=== PATIENT | male | born 1955 | race Caucasian/White ===

== ENCOUNTER → 2016-04-25 | Day surgery (SDC) | payer BC, OTHER ==
[~2016-04-25] VITALS: Ht 172.7 cm; Wt 112.0 kg
[~2016-04-25] MED LIST: AMBI10TA; ATOR1TAB19 PO; BACL10TA2 PO; BUPIVACAINE HCL 0.5% 10 ML VIAL As Ordered ONE; BUPIVACAINE HCL 0.5% 30 ML VIAL XX ONE; CYCL5TA PO; DARV100T; DRIS50002 PO; FLUO10CA8 PO; GABA-283 PO; HYDR-3713 PO; LIDOCAINE 1% SDV INJ 30 ML VIAL As Ordered ONE; LIDOCAINE 1% SDV INJ 30 ML VIAL XX ONE; LISI-542 PO; LR 1,000 ML IV SCH; METF500T PO; MIDAZOLAM INJ 2 MG/2 ML VIAL (J2250) As Ordered ONE; PROPOFOL 500 MG/50 ML VIAL As Ordered ONE; TRAZ100T4 PO; [UNRECOGNIZED DRUG - REMARK]; dexameTHASONE 4 MG/ML 1ML VIAL (J1100) As Ordered ONE; dexameTHASONE 4 MG/ML 1ML VIAL (J1100) XX ONE; fentaNYL 100 MCG/2 ML INJECTION (J3010) As Ordered ONE
[2016-04-25 12:35] VITALS: BP 127/76
--- NOTE | 2016-04-26 10:10 | RO ---
DATE OF PROCEDURE: 04/25/2016 PREPROCEDURE DIAGNOSIS: Left foot bunion, hallux valgus. POSTPROCEDURE DIAGNOSIS: Left foot bunion, hallux valgus. PROCEDURE: Left foot bunionectomy with 1st metatarsal osteotomy. SURGEON: Nicolas Spain DPM BOOK CLEANER: None ANESTHESIA: Monitored anesthesia care with preoperative injection of 20 mL of 1:1 mixture of 1% lidocaine plain and 0.5% Marcaine plain. ESTIMATED BLOOD LOSS: Minimal. MATERIALS: Arthrex 3.5 headless screw, #3-0 and #4-0 Vicryl and #4-0 nylon. INJECTABLES: 1 mL Decadron 4mg/mL. COMPLICATIONS: None. CONDITION: Stable. Fernandez Cook is a 60-year-old male who presents to [facility] with complaints of painful bunion to his left foot. He presented today for surgical correction. The patient side and site were identified and marked in the preoperative holding area. Consent was reviewed and obtained. All risks, complications, and alternatives to the procedure were explained to the patient in detail. Questions were answered. DESCRIPTION OF PROCEDURE: The patient was brought to the operating room and placed on the operating table in supine position. Monitored anesthesia care was delivered by the anesthesia team. A preoperative injection of 20 mL of 1:1 mixture of 1% lidocaine plain and 0.5% Marcaine plain were injected to the left foot. The patient received Ancef preoperatively. Tourniquet was applied to the left ankle. The left foot was prepped and draped in normal sterile fashion. Tourniquet inflated to 250 mmHg. A dorsomedial incision was drawn and carried through with #15 blade. Dissection was carried until the metatarsophalangeal joint capsule was identified. Bovie was used to obtain hemostasis. A T capsulotomy was performed, exposing metatarsal head. Next, a lateral release was performed, releasing the adductor tendon, lateral capsule, and sesamoidal ligament. The McGlamry elevator was used to free the plantar structures. Following this, the medial eminence of the metatarsal head was resected with sagittal saw, and osteotomy was performed in the metatarsal head, transposing it laterally. This was fixated with an Arthrex 3.5 headless screw. The remaining bone ledge was resected with sagittal saw and smoothed with a rasp. Site was irrigated with normal saline. A small wedge of the medial capsule was removed, and capsule repair was performed with #3-0 Vicryl, subcutaneous closure with #4- 0 Vicryl, and skin closure with #4-0 nylon. Postoperative injection of 1 mL Decadron was injected. Sterile dressing was applied. Tourniquet was deflated. The patient was brought to postanesthesia care unit (PACU) with vital signs stable and neurovascular status intact. He will be partial weightbearing to the left foot. He will followup in the office in 2 days. AFSANEH
== END | disposition home or self-care (01) ==
LOC: M SDC 09:10
PROVIDERS: ATTEND Podiatrist Foot & Ankle Surgery
DX: M20.12 Hallux valgus (acquired), left foot (principal); M21.612 Bunion of left foot; E11.9 Type 2 diabetes mellitus without complications; I10 Essential (primary) hypertension; E78.00 Pure hypercholesterolemia, unspecified; F41.9 Anxiety disorder, unspecified; Z79.899 Other long term (current) drug therapy
CPT/HCPCS: 28296; 88300; C1776; J0690; J1100; J2250; J3010

== ENCOUNTER → 2017-02-15 | Day surgery (SDC) | payer BC, OTHER ==
[~2017-02-15] VITALS: Ht 172.7 cm; Wt 108.9 kg
[~2017-02-15] MED LIST changes: -BUPIVACAINE HCL 0.5% 10 ML VIAL As Ordered ONE; +BUPIVACAINE HCL 0.5% 30 ML VIAL As Ordered ONE; -BUPIVACAINE HCL 0.5% 30 ML VIAL XX ONE; +CYCL10TA PO; -CYCL5TA PO; +CYCL5TAB PO; +LIDOCAINE 1% MDV 20ML VIAL As Ordered ONE; -LIDOCAINE 1% SDV INJ 30 ML VIAL As Ordered ONE; -LIDOCAINE 1% SDV INJ 30 ML VIAL XX ONE; +LIDOCAINE 2% INJ 100 MG/5 ML SDV (FOR ANES.) As Ordered ONE; +LR 1,000 ML IV ONE; -LR 1,000 ML IV SCH; -METF500T PO; +METF500T13 PO; +PROPOFOL 200 MG/20 ML VIAL As Ordered ONE; -PROPOFOL 500 MG/50 ML VIAL As Ordered ONE; +TRAZ-136 PO; -TRAZ100T4 PO; -dexameTHASONE 4 MG/ML 1ML VIAL (J1100) XX ONE
[2017-02-15 08:55] VITALS: BP 141/92
--- NOTE | 2017-02-15 11:17 | RO ---
DATE OF PROCEDURE: 02/15/2017 PREOPERATIVE DIAGNOSIS: Right foot bunion and hallux valgus. POSTOPERATIVE DIAGNOSIS: Right foot bunion and hallux valgus. PROCEDURE: Right foot bunionectomy and first metatarsal osteotomy. SURGEON: Nicolas Spain DPM ARCHAEOLOGY PROFESSOR: None. ANESTHESIA: Monitored anesthesia care (MAC) with preoperative injection of 20 mL of a 1:1 mixture of 1% lidocaine plain and 0.5% Marcaine plain. ESTIMATED BLOOD LOSS: Minimal. MATERIALS: Arthrex 3.5 headless screw, #3-0 and #4-0 Vicryl, #4-0 nylon. INJECTABLES: 1 mL of Decadron 4 mg/mL. COMPLICATIONS: None. CONDITION: Stable. Fernandez Cook is a 61-year-old male who presents to [facility] with complaints of painful bunion to his right foot who presents today for surgical correction. The patient's site and side were identified and marked in the preoperative holding area. Consent was reviewed and obtained. All risks, complications and alternatives to the procedure were explained to the patient in detail. All questions were answered. PROCEDURE: The patient was brought to the operating room and placed on the operating room table in supine position. Monitored anesthesia care was delivered by the anesthesia team. Patient received Ancef preoperatively. Preoperative injection of 20 mL of 1:1 mixture of 1% lidocaine plain and 0.5% Marcaine plain was injected to the right foot. The right foot was prepped and draped in a normal sterile fashion. Tourniquet was applied to the right ankle and inflated to 250 mmHg. A dorsal medial incision was drawn and carried through with a #15 blade. Dissection was carried down and the 1st metatarsal phalangeal joint capsule was identified. Bovie was used to maintain hemostasis. T-capsulotomy was performed exposing the metatarsal head. Next, a lateral release was performed releasing the lateral capsule, adductor tendon, and sesamoidal ligaments. A McGlamry elevator was used to free the plantar structures. Following this, the medial eminence was resected with a sagittal saw and then an osteotomy was performed to the metatarsal head transposing it laterally. This was fixated with Arthrex 3.5 headless screw. The remaining bone ledge was removed with a sagittal saw, smoothed with a rasp. The site was then irrigated with normal saline. A small wedge of capsule was removed and capsular repair was performed with #3-0 Vicryl, subcutaneous closure with #4-0 Vicryl and skin closure with #4-0 nylon. 1 mL of Decadron was injected. Sterile dressing was applied. The tourniquet was deflated. The patient was brought to post anesthesia care unit (PACU) with vital signs stable and neurovascular status intact. He will be weightbearing with crutches and postoperative shoe. He will followup in the office in two days.
== END | disposition home or self-care (01) ==
LOC: M SDC 06:11
PROVIDERS: ATTEND Podiatrist Foot & Ankle Surgery
DX: M21.611 Bunion of right foot (principal); M20.11 Hallux valgus (acquired), right foot; I10 Essential (primary) hypertension; E11.9 Type 2 diabetes mellitus without complications; E78.00 Pure hypercholesterolemia, unspecified; M12.9 Arthropathy, unspecified; E66.9 Obesity, unspecified; Z79.899 Other long term (current) drug therapy
CPT/HCPCS: 28296; 88300; 97116; C1713; J0690; J1100; J2250; J3010